=== PATIENT | female | born 1985 | race Caucasian/White ===

== ENCOUNTER 2020-08-17 22:07 | Emergency (ER) | payer OTHER ==
[~2020-08-17] VITALS: Ht 165.1 cm; Wt 62.6 kg
[2020-08-17 22:49] LABS: ABSOLUTE BASOPHILS 0.1 thou/uL (0.0-0.2); ABSOLUTE EOSINOPHILS 0.5 thou/uL (0.0-0.7); ABSOLUTE LYMPHOCYTES 3.6 thou/uL (0.8-5.3); ABSOLUTE MONOCYTES 0.6 thou/uL (0.0-1.2); ABSOLUTE NEUTROPHILS 3.7 thou/uL (1.6-8.1); BASOPHILS 1.5 %; EOSINOPHILS 5.4 %; HEMATOCRIT 39.4 % (37.0-47.0); HEMOGLOBIN 13.1 gm/dL (12.0-15.0); LYMPHOCYTES 42.8 %; MCH 31.5 pg (26.0-34.0); MCHC 33.4 g/dL (28.0-37.0); MCV 94.4 fL (80.0-100.0); MONOCYTES 7.1 %; MPV 6.9 fl. (7.2-11.1); NUCLEATED RBCS 0 /100WBC; PLATELET COUNT* 345 thou/uL (150-400); POLYS 43.2 %; RBC 4.17 mil/uL (4.20-5.00); RDW-CV 12.9 % (10.5-14.5); WBC 8.5 thou/uL (4.0-11.0)
[2020-08-17 22:54] LABS: CALCIUM 9.1 mg/dL (8.5-10.1); POTASSIUM 3.6 mmol/L (3.5-5.1)
[2020-08-17 22:57] LABS: APTT 24.4 Seconds (25.0-31.3); PROTIME 10.6 Seconds (9.20-11.50)
[2020-08-17 22:58] LABS: TOTAL BILIRUBIN 0.3 mg/dL (<0.1-1.0); TOTAL PROTEIN 7.3 g/dL (6.4-8.2)
[2020-08-18 00:18] VITALS: BP 97/65
--- NOTE | 2020-08-18 11:04 | EKG ---
[place] [address] ELECTROCARDIOGRAM REPORT Name: FARRAH YA Room: [place]#: [id number] Admission: 08/17/20 Attend Phys: Discharge: 08/18/20 Date of : 89 Date of Service: 08/17/202211 Report #: [id number] THIS REPORT FOR: //name// [facility] ED Test Date: 2020-08-17 Test Time: 22:12:36 Pat Name: FARRAH YA Department: Room: Gender: F Technical Sales Engineer: : [id number] Requested By: Cori Kothari Order Number: [id number] MD: Tim Fischer Measurements Intervals [place] Rate: 123 P: 74 CT: 116 QRS: 67 QRSD: 74 T: -3 QT: 288 QTc: 412 Interpretive Statements Sinus tachycardia RSR' in V1 or V2, probably normal variant No previous ECG available for comparison Electronically Signed On 08-18-2020 11:04:24 MENAGERIE SUPERINTENDENT by Tim Fischer [email or web address] <ELECTRONICALLY SIGNED> By: Tim Fischer MD, [facility] 08/18/20 1104 11 11 Tim Fischer MD, [facility] /EPI
== END 2020-08-18 00:18 | disposition home or self-care (01) ==
LOC: M.ERS 22:07
PROVIDERS: Personal Emergency Response Attendant
DX: R07.89 Other chest pain (principal); F41.9 Anxiety disorder, unspecified; R51.9 Headache, unspecified